=== PATIENT | male | born 1960 | race Caucasian/White ===

== ENCOUNTER → 2016-11-29 15:40 | Outpatient (CLI) | payer MEDICARE | END | disposition home or self-care (01) | LOC: D.LAB 15:40 | DX: N40.0 Benign prostatic hyperplasia without lower urinary tract symptoms (principal) ==

== ENCOUNTER → 2018-04-01 14:55 | Outpatient (CLI) | payer MEDICARE ==
[~2018-04-01 14:55] MED LIST: BUSPAR10 MG PO; DEPAKOTE250 MG PO; HYTRIN5 MG PO; LISINOPRIL10 MG PO; METOPROLOL TART25 MG PO; OXYBUTYNIN CHLOR5 MG PO; RESTORIL15 MG PO; TRAZODONE HCL100 MG PO; XANAX2 MG PO; [UNRECOGNIZED DRUG - OTHER]
== END | disposition home or self-care (01) ==
LOC: D.LAB 14:55
DX: Z12.5 Encounter for screening for malignant neoplasm of prostate (principal)

== ENCOUNTER 2018-04-09 20:51 | Emergency (ER) | payer MEDICARE ==
[~2018-04-09] VITALS: Ht 188 cm; Wt 99.8 kg
[2018-04-09 21:01] VITALS: Ht 188 cm; Wt 99.8 kg
[2018-04-09] MEDS ORDERED: BUSPAR10 MG PO (21:02)
[2018-04-09] MEDS ORDERED: METOPROLOL TART25 MG PO (21:03)
[2018-04-09] MEDS ORDERED: [UNRECOGNIZED DRUG - OTHER] (21:03)
[2018-04-09] MEDS ORDERED: OXYBUTYNIN CHLOR5 MG PO (21:04)
[2018-04-09] MEDS ORDERED: XANAX2 MG PO (21:04)
[2018-04-09] MEDS ORDERED: DEPAKOTE250 MG PO (21:04)
[2018-04-09] MEDS ORDERED: LISINOPRIL10 MG PO (21:04)
[2018-04-09] MEDS ORDERED: HYTRIN5 MG PO (21:04)
[2018-04-09] MEDS ORDERED: TRAZODONE HCL100 MG PO (21:05)
[2018-04-09] MEDS ORDERED: RESTORIL15 MG PO (21:05)
[2018-04-09 22:11] VITALS: BP 145/82
== END 2018-04-09 22:11 | disposition home or self-care (01) ==
LOC: D.ER 20:51
DX: F41.9 Anxiety disorder, unspecified (principal)

== ENCOUNTER 2019-11-11 21:52 | Inpatient (IN) | payer OTHER, MEDICARE ==
[~2019-11-11] VITALS: Ht 188 cm; Wt 104.1 kg
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
[~2019-11-11 21:52] MED LIST changes: -TRAZODONE HCL100 MG PO; +TRAZODONE HCL150 MG PO
[2019-11-11] MEDS ORDERED: FLOMAX0.4 MG PO (21:59)
[2019-11-11 22:52] LABS: BASOPHILS 0.2 % (0-2); EOSINOPHILS 1.8 % (0-7); HEMATOCRIT 42.8 % (42.0-54.0); HEMOGLOBIN 14.2 g/dL (13.5-17.5); IMMATURE GRANULOCYTES 0.2 % (0-5); LYMPHOCYTES 35.2 % (15-50); MCH 30.9 pg (26.0-34.0); MCHC 33.2 g/dL (31.0-37.0); MCV 93.2 fL (80.0-100.0); MONOCYTES 8.5 % (2-11); NEUTROPHILS 54.1 % (40-80); PLATELET COUNT 217 10x3/uL (130-400); RBC 4.59 10x6/uL (4.20-6.10); WBC 8.5 10x3/uL (4.8-10.8)
[2019-11-11 22:53] VITALS: BP 188/93
[2019-11-11 23:01] LABS: CALC OSMOLALITY 277 mosm/kg (275-300); CALCIUM 8.6 mg/dL (8.5-10.1); CARBON DIOXIDE 30.1 mmol/L (21.0-32.0); CHLORIDE - SERUM 104 mmol/L (98-107); CREATININE - SERUM 0.9 mg/dL (0.6-1.3); GLUCOSE 123 mg/dL (74-106); POTASSIUM - SERUM 4.2 mmol/L (3.5-5.1); SODIUM 137 mmol/L (136-145); UREA NITROGEN 22 mg/dL (7-18); eGFR NON AFRICAN AMERICAN > 90 mL/min (90-120)
[2019-11-11 23:10] LABS: ALBUMIN 3.5 g/dL (3.4-5.0); ALKALINE PHOSPHATASE 62 U/L (30-120); ALT (SGPT) 61 U/L (10-68); BILIRUBIN - TOTAL 0.38 mg/dL (0.2-1.3); CREATINE KINASE 113 UL (21-232); LIPASE 187 U/L (73-393); PROTEIN - SERUM 7.2 g/dL (6.4-8.2); TROPONIN-I 0.021 ng/mL (0.000-0.060)
[2019-11-12] VITALS (21 sets, daily range): BP systolic 148–185; BP diastolic 83–109; Ht 188 cm; Wt 104.1 kg
--- NOTE | 2019-11-12 02:00 | NUR ---
transfered to icu ns @ 125cc/hr infusing
--- NOTE | 2019-11-12 02:15 | NUR ---
RECEIVED TO ICU, ROOM 2314. ACCOMPANIED BY ER STAFF. A&O X 4, AMBULATES INDEPENDENTLY. VOIDED IN URINAL UPON ARRIVAL. REPORTS PAIN IS TOLERABLE, 2-3/10, BUT STATES HE IS EXPERIENCING ANXIETY. VS ARE STABLE. ANSWERS QUESTIONS APPROPRIATELY. UNABLE TO GIVE FULL ACCURATE MED REC. REQUESTED PT HAVE FAMILY BRING MEDICATION TO HOSPITAL IN A.M.. DOES REPORT HE HAS MEDICINAL MARIJUANA CARD, BUT UNABLE TO ADD TO MED REC. VERBALIZED UNDERSTANDING OF NPO STATIS. PT GUIDE GIVEN, ALLERGY BAND APPLIED, CL IN REACH, BED IN LOW POSITION, SIDE RAILS X 2. NO NEEDS VOICED AT THIS TIME, WILL MONITOR CLOSELY.
[2019-11-12 04:25] LABS: HEMATOCRIT 42.8 % (42.0-54.0); HEMOGLOBIN 13.9 g/dL (13.5-17.5)
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
[2019-11-12 05:02] LABS: ALBUMIN 3.5 g/dL (3.4-5.0); ALKALINE PHOSPHATASE 62 U/L (30-120); ALT (SGPT) 56 U/L (10-68); BILIRUBIN - TOTAL 0.37 mg/dL (0.2-1.3); CALC OSMOLALITY 276 mosm/kg (275-300); CALCIUM 8.1 mg/dL (8.5-10.1); CHLORIDE - SERUM 104 mmol/L (98-107); CREATININE - SERUM 0.9 mg/dL (0.6-1.3); GLUCOSE 117 mg/dL (74-106); POTASSIUM - SERUM 4.4 mmol/L (3.5-5.1); SODIUM 137 mmol/L (136-145); UREA NITROGEN 17 mg/dL (7-18); eGFR NON AFRICAN AMERICAN > 90 mL/min (90-120)
[2019-11-12 05:05] LABS: CREATINE KINASE 406 UL (21-232)
[2019-11-12 05:06] LABS: CKMB 4.1 U/L (0.0-3.6)
--- NOTE | 2019-11-12 07:15 | NUR ---
REPORT RECIEVED, SHIFT ASSESSMENT COMPLETE, ,PT IS ALERT AND ORIENTED, ON RA WITH 97% O2 SAT. ALL PPP, VSS, CALL LIGHT IN REACH
--- NOTE | 2019-11-12 09:19 | NUR ---
DR. BEASLEY AT BEDSIDE, UPDATE GIVEN
--- NOTE | 2019-11-12 11:00 | NUR ---
REASSESSMENT COMPLETE, NO CHANGES NOTED, WILL CON'T TO MONITOR
--- NOTE | 2019-11-12 13:00 | NUR ---
PT AWAKE AT THIS TIME, DENIES ANY WANTS OR NEEDS, VSS, CALL LIGHT IN REACH
[2019-11-12 13:34] LABS: HEMOGLOBIN 14.3 g/dL (13.5-17.5)
[2019-11-12] MEDS ORDERED: PROSCAR5 MG PO (14:29)
[2019-11-12] MEDS ORDERED: ULTRAM50 MG PO (14:30)
[2019-11-12] MEDS ORDERED: LOPRESSOR25 MG PO (14:31)
--- NOTE | 2019-11-12 15:11 | NUR ---
B/P 179/[address] BEASLEY
--- NOTE | 2019-11-12 17:30 | NUR ---
NO NEEDS NOTED AT THIS TIME, WILL CON'T TO MONITOR
--- NOTE | 2019-11-12 19:45 | NUR ---
SHIFT ASSESSMENT COMPLETE. PATIENT DENIES ANY NEEDS AT THIS TIME. CALL LIGHT WITHIN REACH, BED IN LOW POSITION, AND ALARM ON.
--- NOTE | 2019-11-12 21:30 | NUR ---
NO CHANGES IN PATIENT AT THIS TIME. CALL LIGHT WITHIN REACH, BED IN LOW POSITION, AND ALARM IS ON. WILL CONTINUE TO MONITOR.
--- NOTE | 2019-11-12 23:00 | NUR ---
REASSESSMENT COMPLETE. CALL LIGHT WITHIN REACH, BED IN LOW POSITION, AND ALARM IS ON. WILL CONTINUE TO MONITOR.
[2019-11-13] VITALS (12 sets, daily range): BP systolic 140–164; BP diastolic 76–93
--- NOTE | 2019-11-13 01:00 | NUR ---
NO CHANGES IN PATIENT CONDITION. CALL LIGHT WITHIN REACH, BED IN LOW POSITION, AND ALARM IS ON. WILL CONTINUE TO MONITOR.
--- NOTE | 2019-11-13 03:00 | NUR ---
REASSESSMENT COMPLETE. NO CHANGES IN PATIENT CONDITION. CALL LIGHT WITHIN REACH, BED IN LOW POSITION, AND ALARM IS ON. WILL CONITINUE TO MONITOR.
[2019-11-13 04:15] LABS: BASOPHILS 0.1 % (0-2); EOSINOPHILS 0.5 % (0-7); HEMATOCRIT 38.9 % (42.0-54.0); IMMATURE GRANULOCYTES 0.3 % (0-5); LYMPHOCYTES 24.7 % (15-50); MCH 31.1 pg (26.0-34.0); MCHC 33.4 g/dL (31.0-37.0); MCV 93.1 fL (80.0-100.0); MEAN PLATELET VOLUME 10.5 fL (7.4-10.4); MONOCYTES 12.8 % (2-11); NEUTROPHILS 61.6 % (40-80); PLATELET COUNT 198 10x3/uL (130-400); RBC 4.18 10x6/uL (4.20-6.10); RDW 14.1 % (11.5-14.5); WBC 9.6 10x3/uL (4.8-10.8)
[2019-11-13 04:43] LABS: CALC OSMOLALITY 278 mosm/kg (275-300); CALCIUM 8.3 mg/dL (8.5-10.1); CARBON DIOXIDE 27.9 mmol/L (21.0-32.0); CHLORIDE - SERUM 106 mmol/L (98-107); CREATININE - SERUM 0.9 mg/dL (0.6-1.3); GLUCOSE 107 mg/dL (74-106); POTASSIUM - SERUM 3.9 mmol/L (3.5-5.1); SODIUM 139 mmol/L (136-145); UREA NITROGEN 14 mg/dL (7-18); eGFR NON AFRICAN AMERICAN > 90 mL/min (90-120)
--- NOTE | 2019-11-13 05:00 | NUR ---
NO CHANGES IN PATIENT CONDITION. CALL LIGHT WITHIN REACH, BED IN LOW POSITION, AND ALARM IS ON. WILL CONTINUE TO MONITOR.
--- NOTE | 2019-11-13 07:00 | NUR ---
REPORT RECIEVED, SHIFT ASSESSMENT COMPLETE, PT IS ALERT AND ORIENTED, ON RA WITH 97% O2 SAT. ALL PPP, VSS, CALL LIGHT IN REACH
--- NOTE | 2019-11-13 09:00 | NUR ---
LG BM AT THIS TIME,
--- NOTE | 2019-11-13 10:30 | NUR ---
DR. BEASLEY AT BEDSIDE, NEW ORDERS RECIEVED
--- NOTE | 2019-11-13 13:43 | NUR ---
REPORT CALLED TO TAMIKA ON MED SURG,
--- NOTE | 2019-11-13 14:50 | NUR ---
FROM ICU VIA WHEELCHAIR. HE IS ALERT, TALKING. IV TO HIS LEFT HAND- SL.
[2019-11-14] VITALS: BP 158/81
[2019-11-14 04:00] VITALS: BP 121/84
[2019-11-14 06:20] LABS: BASOPHILS 0.2 % (0-2); EOSINOPHILS 0.9 % (0-7); HEMATOCRIT 38.6 % (42.0-54.0); HEMOGLOBIN 12.7 g/dL (13.5-17.5); IMMATURE GRANULOCYTES 0.2 % (0-5); LYMPHOCYTES 23.1 % (15-50); MCH 30.7 pg (26.0-34.0); MCHC 32.9 g/dL (31.0-37.0); MCV 93.2 fL (80.0-100.0); MEAN PLATELET VOLUME 11.4 fL (7.4-10.4); MONOCYTES 14.8 % (2-11); NEUTROPHILS 60.8 % (40-80); PLATELET COUNT 198 10x3/uL (130-400); RBC 4.14 10x6/uL (4.20-6.10); RDW 14.2 % (11.5-14.5)
[2019-11-14 08:26] VITALS: BP 139/81
--- NOTE | 2019-11-14 08:40 | NUR ---
HE IS ALERT, TALKING. ASKING ABOUT HIS LEFT ANKLE, XRAY OF HIS LUNG. WANTING PO PILLS FOR PAIN, WANTING TO TALK TO THE DOCTOR. HE IS UP AND DOWN TO THE BATHROOM. THE CALL LIGHT IS WITHIN REACH.
--- NOTE | 2019-11-14 10:08 | NUR ---
Nutrition follow-up: Pt on an regular diet with po intake 100% of meals at this time. Labs reviewed Wt: 229# +BM RDN following.
[2019-11-14] MEDS ORDERED: HYDROCODON-ACE1 EAC7 PO (12:17)
[2019-11-14 12:45] VITALS: BP 166/63
--- NOTE | 2019-11-14 14:40 | MORECARE ---
CASE MANAGEMENT DISCHARGE SUMMARY PATIENT: TONIE SINCLAIR UNIT: [id number] ADM DATE: 11/11/19 AGE: 59 : 56 SEX: M ROOM/BED: D.2203 AUTHOR: IGOR EDDY PHYSICIAN: REFERRING PHYSICIAN: MEREDITH BEASLEY MD DATE OF SERVICE: 11/14/19 Discharge Plan Patient Name: TONIE SINCLAIR [facility] [facility] 1960 Planned Disposition: Home or Self Care Anticipated Discharge Date: Discharge Date: Expected LOS: Initial Reviewer: [email or web address] Initial Review Date: 11/12/2019 Generated: 11/14/19 3:40 pm DCPIA - Discharge Planning Initial Assessment Updated by [email or web address]: Tesha Pena on 11/14/19 2:36 pm * Is the patient Alert and Oriented? Yes * PCP TIFF SIMPSON * Pharmacy [facility] * Preadmission Environment Home with Family * ADLs Independent * Equipment Other * List name and contact numbers for known caregivers / representatives who currently or will assist patient after discharge: SATINDER SINCLAIR ([facility] [place]) [phone] * Verbal permission to speak to the caregivers and representatives has been obtained from the patient. N/A * Community resources currently utilized None * Additional services required to return to the preadmission environment? No * Can the patient safely return to the preadmission environment? Yes * Has this patient been hospitalized within the prior 30 days at any hospital? No Patient Name: TONIE SINCLAIR Page [phone] at 1440 All edits/amendments must be made on the electronic document DICTATION DATE: 11/14/19 1440 PLANT OPERATOR: LANE 11/14/19 1440 RPT#: [id number] DC DATE: STATUS: ADM IN [facility] [address] [place] [address] END OF REPORT
--- NOTE | 2019-11-14 14:51 | MORECARE ---
CASE MANAGEMENT DISCHARGE SUMMARY PATIENT: TONIE SINCLAIR UNIT: [id number] ADM DATE: 11/11/19 AGE: 59 : 56 SEX: M ROOM/BED: D.2203 AUTHOR: SURJIT,DOC PHYSICIAN: REFERRING PHYSICIAN: MEREDITH BEASLEY MD DATE OF SERVICE: 11/14/19 Discharge Plan Patient Name: TONIE SINCLAIR Facility: [facility]:[place] : 1960 Planned Disposition: Home or Self Care Anticipated Discharge Date: Discharge Date: Expected LOS: Initial Reviewer: [email or web address] Initial Review Date: 11/12/2019 Generated: 11/14/19 3:51 pm Comments DCP- Discharge Planning Updated by [email or web address]: Tesha Pena on 11/14/19 1:[address] Patient Name: TONIE SINCLAIR Admission Status: ER Accout number: [id number] Admission Date: 11-11-2019 : 1960 Admission Diagnosis:TRAUMATIC PNEUMOTHORAX, INITIAL ENCOUNTER Attending: MEREDITH BEASLEY Current LOS: 3 Anticipated DC Date: Planned Disposition: Home or Self Care Primary Insurance: [employer] Discharge Planning Comments: CM met with patient to complete initial dc planning assessment. CM educated patient on the CM role and verbal consent given by patient to complete assessment. Patient lives at home with his mother where he is independent with his care. At discharge patient plans to return home and feels this is a safe discharge. CM discussed availability of home health, rehab services, and medical equipment. His mom will be his fuel truck driver home. Patient denied known discharge needs at this time. CM will continue to follow and will assist as needed with dc plans/needs. Barrel Tester: Tesha Pena DCPIA - Discharge Planning Initial Assessment Updated by [email or web address]: Tesha Pena on 11/14/19 2:36 pm * Is the patient Alert and Oriented? Yes * PCP TIFF SIMPSON * Pharmacy [facility] [address] * Preadmission Environment Home with Family * ADLs Independent * Equipment Other * List name and contact numbers for known caregivers / representatives who currently or will assist patient after discharge: SATINDER SINCLAIR (MOM) [phone] * Verbal permission to speak to the caregivers and representatives has been obtained from the patient. N/A * Community resources currently utilized None * Additional services required to return to the preadmission environment? No * Can the patient safely return to the preadmission environment? Yes * Has this patient been hospitalized within the prior 30 days at any hospital? No Last DP export: 11/14/19 1:40 p Patient Name: TONIE SINCLAIR Page [id number] at 1451 All edits/amendments must be made on the electronic document DICTATION DATE: 11/14/191450 OCCUPATIONAL THERAPY DEPARTMENT CHAIR: LANE 11/14/191450 RPT#: [id number] DC DATE: STATUS: ADM IN [facility] [address] [place] [address] END OF REPORT
--- NOTE | 2019-11-14 16:36 | NUR ---
HIS IV IS OUT, HIS MOTHER IS IN THE FRONT WAITING TO TAKE HIM HOME. HE WAS TAKEN OUT BY A WHEELCHAIR. QUESTIONS WERE ANSWERED AND PAPERWORK GONE OVER WITH HIM.
--- NOTE | 2019-11-15 09:50 | MORECARE ---
CASE MANAGEMENT DISCHARGE SUMMARY PATIENT: TONIE SINCLAIR UNIT: [id number] ADM DATE: 11/11/19 AGE: 59 : 56 SEX: M ROOM/BED: D.2203 AUTHOR: SURJIT,DOC PHYSICIAN: REFERRING PHYSICIAN: MEREDITH BEASLEY MD DATE OF SERVICE: 11/15/19 Discharge Plan Patient Name: TONIE SINCLAIR Facility: [facility]:[place] : 1960 Planned Disposition: Home or Self Care Anticipated Discharge Date: Discharge Date: 11/14/2019 Expected LOS: Initial Reviewer: [email or web address] Initial Review Date: 11/12/2019 Generated: 11/15/19 10:49 am Comments DCP- Discharge Planning Updated by [email or web address]: Tesha Pena on 11/14/19 1:[address] Patient Name: TONIE SINCLAIR Admission Status: ER Accout number: [id number] Admission Date: 11-11-2019 : 1960 Admission Diagnosis:TRAUMATIC PNEUMOTHORAX, INITIAL ENCOUNTER Attending: MEREDITH BEASLEY Current LOS: 3 Anticipated DC Date: Planned Disposition: Home or Self Care Primary Insurance: [employer] Discharge Planning Comments: CM met with patient to complete initial dc planning assessment. CM educated patient on the CM role and verbal consent given by patient to complete assessment. Patient lives at home with his mother where he is independent with his care. At discharge patient plans to return home and feels this is a safe discharge. CM discussed availability of home health, rehab services, and medical equipment. His mom will be his show horse driver home. Patient denied known discharge needs at this time. CM will continue to follow and will assist as needed with dc plans/needs. Organizational Psychologist: Tesha Pena DCPIA - Discharge Planning Initial Assessment Updated by [email or web address]: Tesha Pena on 11/14/19 2:36 pm * Is the patient Alert and Oriented? Yes * PCP TIFF SIMPSON * Pharmacy [facility] [address] * Preadmission Environment Home with Family * ADLs Independent * Equipment Other * List name and contact numbers for known caregivers / representatives who currently or will assist patient after discharge: SATINDER SINCLAIR (MOM) [phone] * Verbal permission to speak to the caregivers and representatives has been obtained from the patient. N/A * Community resources currently utilized None * Additional services required to return to the preadmission environment? No * Can the patient safely return to the preadmission environment? Yes * Has this patient been hospitalized within the prior 30 days at any hospital? No Last DP export: 11/14/19 1:51 p Patient Name: TONIE SINCLAIR Page [id number] at 0950 All edits/amendments must be made on the electronic document DICTATION DATE: 11/15/19948 PUFFER TENDER: LANE 11/15/1951 RPT#: [id number] DC DATE:11/14/19 STATUS: DIS IN [facility] [address] [place] [address] END OF REPORT
== END 2019-11-14 16:39 | disposition home or self-care (01) | DRG 965 ==
LOC: D.ER 21:52 → D.ICU 23:14 → D.MS 11-13 14:24
PROVIDERS: Family Medicine; ADMIT Surgery; ATTEND Surgery
DX: S27.0XXA Traumatic pneumothorax, initial encounter (principal); S36.119A Unspecified injury of liver, initial encounter; V89.2XXA Person injured in unspecified motor-vehicle accident, traffic, initial encounter; Y92.410 Unspecified street and highway as the place of occurrence of the external cause; S30.1XXA Contusion of abdominal wall, initial encounter; K21.9 Gastro-esophageal reflux disease without esophagitis; I10 Essential (primary) hypertension